=== PATIENT | male | born 1985 | race African-American/Black ===

== ENCOUNTER 2016-10-21 00:04 | Emergency (ER) | payer OTHER ==
[~2016-10-21] VITALS: Ht 175.3 cm; Wt 102.7 kg
[2016-10-21 01:11] LABS: EOSINOPHIL (%) 3.2 % (0-5); EOSINOPHIL COUNT 0.2 K/uL (0-0.3); HEMATOCRIT 38.1 % (38.0-50.0); IMMATURE GRANULOCYTE (%) 0.2 % (0.0-0.7); INSTRUMENT ABS NEUTROPHIL CT 3.3 K/uL; LYMPHOCYTE COUNT 1.5 K/uL (1.0-2.8); MCH 31.3 PG (29.0-34.0); MCHC 33.9 G/DL (30.0-36.0); MCV 92.5 FL (86-99); MEAN PLAT.VOLUME 10.4 uM^3 (9.0-12.4); MONOCYTE (%) 6.9 % (3-12); MONOCYTE COUNT 0.4 K/uL (0-0.8); NEUTROPHIL (%) 61.7 % (45-76); NEUTROPHIL COUNT 3.3 K/uL (1.8-6.4); PLATELET COUNT 193 K/uL (156-360); RBC DIS.WIDTH-CV 12.6 % (11.8-14.6); RBC DIS.WIDTH-SD 42.9 % (39-53); RED BLOOD COUNT 4.12 M/uL (4.00-5.50); WHITE BLOOD COUNT 5.4 K/uL (4.1-10.2)
[2016-10-21 01:23] LABS: CHLORIDE 108 mEq/L (99-109); POTASSIUM 3.4 mEq/L (3.7-5.4); SODIUM 142 mEq/L (136-147)
[2016-10-21 01:25] LABS: GLUCOSE 112 mg/dL (70-99)
[2016-10-21 01:27] LABS: ANION GAP 9 MEQ/L (2-14)
[2016-10-21 01:29] LABS: GFR ESTIMATE (CALCULATED) > 59 mL/min/
[2016-10-21 01:34] LABS: TROP-I INTERPRETATION NEGATIVE; TROPONIN-I < 0.01 ng/mL (0.0-0.30)
[2016-10-21 02:22] LABS: UREA NITROGEN (BUN) 16 mg/dL (9-23)
[2016-10-21] MEDS ORDERED: ZESTORETIC 10-1 EAC1 PO (02:36)
[2016-10-21 03:37] VITALS: BP 138/96
== END 2016-10-21 03:39 | disposition home or self-care (01) ==
LOC: EME → EDBD 00:04 → EME 03:39
PROVIDERS: Emergency Medicine
DX: R55 Syncope and collapse (principal); W18.30XA Fall on same level, unspecified, initial encounter; I10 Essential (primary) hypertension; F17.200 Nicotine dependence, unspecified, uncomplicated
CPT/HCPCS: 80048; 81003; 84484; 85025; 93005; 99281; 99285; J7030

== ENCOUNTER 2016-10-24 21:17 | Emergency (ER) | payer OTHER ==
[~2016-10-24] VITALS: Ht 175.3 cm; Wt 101.0 kg
[~2016-10-24 21:17] MED LIST: ZESTORETIC 10-1 EAC1 PO
[2016-10-24 22:06] LABS: BASOPHIL COUNT 0.1 K/uL (0-0.1); EOSINOPHIL (%) 2.4 % (0-5); EOSINOPHIL COUNT 0.2 K/uL (0-0.3); HEMATOCRIT 41.5 % (38.0-50.0); IMMATURE GRANULOCYTE (%) 0.2 % (0.0-0.7); INSTRUMENT ABS NEUTROPHIL CT 4.2 K/uL; LYMPHOCYTE COUNT 1.4 K/uL (1.0-2.8); MCH 31.3 PG (29.0-34.0); MCHC 33.5 G/DL (30.0-36.0); MCV 93.5 FL (86-99); MEAN PLAT.VOLUME 10.2 uM^3 (9.0-12.4); MONOCYTE (%) 6.3 % (3-12); MONOCYTE COUNT 0.4 K/uL (0-0.8); NEUTROPHIL (%) 67.3 % (45-76); NEUTROPHIL COUNT 4.2 K/uL (1.8-6.4); PLATELET COUNT 194 K/uL (156-360); RBC DIS.WIDTH-CV 12.6 % (11.8-14.6); RBC DIS.WIDTH-SD 43.6 % (39-53); RED BLOOD COUNT 4.44 M/uL (4.00-5.50); WHITE BLOOD COUNT 6.2 K/uL (4.1-10.2)
[2016-10-24 22:20] LABS: CHLORIDE 105 mEq/L (99-109); POTASSIUM 3.5 mEq/L (3.7-5.4); SODIUM 140 mEq/L (136-147)
[2016-10-24 22:22] LABS: GLUCOSE 80 mg/dL (70-99)
[2016-10-24 22:23] LABS: ANION GAP 13 MEQ/L (2-14)
[2016-10-24 22:25] LABS: SERUM ETHYL ALCOHOL 10 mg/dL
[2016-10-24 22:26] LABS: GFR ESTIMATE (CALCULATED) > 59 mL/min/
[2016-10-24 22:28] LABS: UREA NITROGEN (BUN) 12 mg/dL (9-23)
[2016-10-24 22:29] LABS: SALICYLATE < 5.0 MG/DL (15-30)
[2016-10-24] MEDS ORDERED: ZOFRAN4 MG PO (22:46)
[2016-10-24 23:48] VITALS: BP 158/101
== END 2016-10-24 23:48 | disposition home or self-care (01) ==
LOC: EME 21:17
PROVIDERS: Emergency Medicine
DX: F10.129 Alcohol abuse with intoxication, unspecified (principal); R55 Syncope and collapse; R11.2 Nausea with vomiting, unspecified; N28.9 Disorder of kidney and ureter, unspecified; R00.0 Tachycardia, unspecified; F17.200 Nicotine dependence, unspecified, uncomplicated
CPT/HCPCS: 36600; 71010; 80048; 81003; 82140; 82803; 83605; 84484; 85025; 93005; 99281; 99284; G0480; J2405; J7030